=== PATIENT | male | born 1980 | race Caucasian/White ===

== ENCOUNTER 2016-07-21 12:04 | Emergency (ER) | payer BC ==
--- NOTE | ~2016-07-21 | EKG ---
PATIENT: CORINNA SWAIN UNIT #: [id number] Ventricular Rate: 103 BPM Atrial Rate: 103 BPM P-R Interval: 138 ms QRS Duration: 76 ms Q-T Interval: 348 ms QTC Calculation(Bezet): 455 ms P Foley: 81 degrees Calculated R Foley: 57 degrees Calculated T Foley: 47 degrees Diagnosis Line: Sinus tachycardia Diagnosis Line: Otherwise normal ECG Diagnosis Line: No previous ECGs available Diagnosis Line: Confirmed by HAMIDA AKERS MD ([id number]) on 07/22/2016 Diagnosis Line: 7:34:22 AM INTERPRETING MD: DELPHINE KELSEY
[~2016-07-21 12:04] MED LIST: BACTRIM DS TABL1 TA1 PO; FLEXERIL PO; KEFLEX500 MG PO; NO MEDICATIONS; NORCO 5/325 TAB1 TAB PO; PHENERGAN PO; SKELAXIN PO; ULTRAM PO; VOLTAREN75 MG PO
[2016-07-21 13:46] LABS: BASOPHIL# 0.1 X10e3 (0-0.3); BASOPHIL% 0.7 % (0-2.5); EOSINOPHIL# 0.3 X10e3 (0-0.7); EOSINOPHIL% 3.4 % (0.0-7.0); HEMATOCRIT 40.5 % (38.0-50.0); LYMPHOCYTE# 2.6 X10e3 (1.0-3.5); LYMPHOCYTE% 30.7 % (17.0-45.0); MEAN CELL VOLUME 85.8 FL (83-96); MEAN CORPUSCULAR HEMOGLOBIN 27.6 PG (28-34); MEAN CORPUSCULAR HGB CONC 32.1 g/dL (30-36); MEAN PLATELET VOLUME 7.8 FL (6.5-11.5); MONOCYTE# 0.5 X10e3 (0-1.0); MONOCYTE% 6.3 % (3.0-12.0); NEUTROPHIL% 58.9 % (40-75); PLATELET COUNT 249 X10e3 (140-420); RED BLOOD COUNT 4.72 X10e (3.90-5.60); RED CELL DISTRIBUTION WIDTH 13.9 % (11.0-15.5); WHITE BLOOD COUNT 8.5 X10e3 (4.0-10.5)
[2016-07-21 13:49] LABS: DIFF IND NO
[2016-07-21 13:54] LABS: POC - TROPONIN <0.05 ng/mL (<=0.05)
[2016-07-21 15:08] LABS: ALBUMIN SERUM 4.2 g/dL (3.5-5.0); ALKALINE PHOSPHATASE 96 U/L (32-92); ALT (SGPT) 16 U/L (10-40); AST (SGOT) 20 U/L (10-42); BILIRUBIN,TOTAL 0.4 mg/dL (0.2-2.0); BLOOD UREA NITROGEN 18 mg/dL (9-23); BUN/CREATININE RATIO 16.36; CALCIUM SERUM 9.1 mg/dL (8.4-10.2); CARBON DIOXIDE 28 mmol/L (22-31); CHLORIDE 104 mmol/L (100-111); CREATININE SERUM 1.1 mg/dL (0.6-1.4); GLOM FILT RATE Estimated 87.1 mL/min (>60); GLUCOSE FASTING 109 mg/dL (70-110); POTASSIUM 3.5 mmol/L (3.5-5.1); PROTEIN TOTAL SERUM 6.8 g/dL (6.0-8.3); SODIUM 138 mmol/L (135-145)
[2016-07-21 15:09] LABS: BILIRUBIN, DIRECT <0.1 mg/dL (0.0-0.2); BILIRUBIN,INDIRECT 0.3 mg/dL (0.0-0.9)
== END 2016-07-21 15:40 | disposition home or self-care (01) ==
LOC: CED 12:04
PROVIDERS: Emergency Medicine
DX: E86.0 Dehydration (principal); R55 Syncope and collapse; F17.210 Nicotine dependence, cigarettes, uncomplicated; Z98.890 Other specified postprocedural states
CPT/HCPCS: 36415; 80048; 80076; 82553; 84484; 85025; 93005; 96360; 99284

== ENCOUNTER 2016-10-15 18:15 | Emergency (ER) | payer BC ==
[2016-10-15 19:00] LABS: URINE APPEARANCE CLOUDY; URINE BILIRUBIN NEG (NEG); URINE BLOOD TRACE-INTACT (NEG); URINE COLOR YELLOW; URINE GLUCOSE NEG (NORM); URINE KETONE NEG (NEG); URINE LEUKOCYTE ESTERASE 3+ (NEG); URINE NITRATE NEG (NEG); URINE PROTEIN NEG (NEG); URINE SPECIFIC GRAVITY 1.015 (1.003-1.035); URINE UROBILINOGEN 0.2 MG/DL (NORM)
[2016-10-15 19:10] LABS: MICRO INDICATED? YES; URINE SOURCE CLEAN CATCH
[2016-10-15 19:19] LABS: CULTURE INDICATED? YES; URINE BACTERIA 1+ (NEG); URINE WBC INNUM /[HPF] (0-5)
[2016-10-15 19:20] LABS: URINE SQUAMOUS EPITHELIAL CELL OCCAS /[HPF]
[2016-10-19 12:46] LABS: CHLAMYDIA TRACH Not Detected (Not Detected); N GONOR Detected (Not Detected)
== END 2016-10-15 19:37 | disposition home or self-care (01) ==
LOC: SED 18:15
PROVIDERS: Physician Assistant
DX: N34.1 Nonspecific urethritis (principal); Z20.2 Contact with and (suspected) exposure to infections with a predominantly sexual mode of transmission; F17.210 Nicotine dependence, cigarettes, uncomplicated
CPT/HCPCS: 81003; 87086; 87491; 87591; 96372; 99283; J0696